=== PATIENT | female | born 1960 | race Caucasian/White ===

== ENCOUNTER 2017-11-03 12:33 | Emergency (ER) | payer MEDICAID ==
[~2017-11-03] VITALS: Ht 165.1 cm; Wt 70.7 kg
[2017-11-03 12:39] VITALS: BP 133/88
[2017-11-03] MEDS ORDERED: SODIUM CHLORIDE 0.9% 1,000 ML IV ONE (12:46)
[2017-11-03] MEDS ORDERED: SODIUM CHLORIDE 0.9% 1,000ML IVBOLUS ONE (13:00)
[2017-11-03] MEDS ORDERED: FAMOTIDINE 20 MG/2 ML IVP ONE (13:00)
[2017-11-03] MEDS ORDERED: ONDANSETRON ODT 4 MG PO ONE (13:00)
[2017-11-03 13:11] LABS: BASOPHILS # (AUTO) 0.01 x10^3/uL (0-0.1); BASOPHILS % (AUTO) 0 % (0-1); EOSINOPHILS # (AUTO) 0.06 x10^3/uL (0-0.4); EOSINOPHILS % (AUTO) 1 % (1-7); LYMPHOCYTES # (AUTO) 1.54 x10^3/uL (1-3.4); LYMPHOCYTES % (AUTO) 21 % (22-44); MD NO; MEAN CORPUSCULAR HEMOGLOBIN 32.5 pg (27.0-34.8); MEAN CORPUSCULAR HGB CONC 33.9 g/dL (32.4-35.8); MEAN CORPUSCULAR VOLUME 95.9 fL (80-100); MEAN PLATELET VOLUME 8.4 fL (7.4-10.4); MONOCYTES # (AUTO) 0.52 x10^3/uL (0.2-0.8); MONOCYTES % (AUTO) 7 % (2-9); NEUTROPHILS % (AUTO) 71 % (42-75); PLATELET COUNT 242 x10^3/uL (130-400); RED BLOOD COUNT 5.55 x10^6/uL (3.82-5.3); RED CELL DISTRIBUTION WIDTH 16.7 % (9.6-15.2)
[2017-11-03 13:19] LABS: ALANINE AMINOTRANSFERASE 53 U/L (12-78); ALBUMIN 3.9 g/dL (3.4-5.0); ANION GAP 11 mmol/L (5-15); CALCIUM 8.7 mg/dL (8.5-10.1); CHLORIDE 101 mmol/L (98-107); SALICYLATE LEVEL 6.1 mg/dL (2.8-20.0)
[2017-11-03 13:22] LABS: ALKALINE PHOSPHATASE 97 U/L (45-117); BILIRUBIN,TOTAL 0.6 mg/dL (0.2-1.0); TOTAL PROTEIN 7.1 g/dL (6.4-8.2)
[2017-11-03 13:23] LABS: ACETAMINOPHEN < 2 mcg/mL (10-30)
[2017-11-03] MEDS ORDERED: ONDANSETRON 2MG/ML, 2ML ONE (14:07)
[2017-11-03] MEDS ORDERED: FAMOTIDINE 20 MG/2 ML ONE (14:08)
[2017-11-03 16:12] LABS: CULTURE INDICATED? YES; MICROSCOPIC INDICATED
[2017-11-03 16:24] LABS: AMPHETAMINE SCREEN, URINE Negative (Negative); BARBITURATE SCREEN, URINE Negative (Negative); CANNABINOID SCREEN, URINE Negative (Negative); COCAINE SCREEN, URINE Negative (Negative); METHADONE SCREEN, URINE Negative (Negative); OPIATE SCREEN, URINE Negative (Negative)
[2017-11-03 16:29] LABS: BENZODIAZEPINE SCREEN, URINE Negative (Negative)
== END 2017-11-03 17:03 | disposition home or self-care (01) ==
LOC: ED 16:40
DX: F10.220 Alcohol dependence with intoxication, uncomplicated (principal); F41.1 Generalized anxiety disorder
CPT/HCPCS: 36415; 80053; 80307; 80329; 81001; 83690; 85025; 87086; 96361; 96374; 99285; J7030; Q0162; G0480; S0028

== ENCOUNTER 2020-06-13 04:51 | Emergency (ER) | payer SELFPAY ==
[~2020-06-13] VITALS: Ht 167.6 cm; Wt 83.1 kg
[2020-06-13 04:55] VITALS: BP 160/77
== END 2020-06-13 06:02 | disposition home or self-care (01) ==
LOC: ED 05:51
DX: K08.89 Other specified disorders of teeth and supporting structures (principal); R22.0 Localized swelling, mass and lump, head
CPT/HCPCS: 99283

== ENCOUNTER 2021-02-06 13:45 | Emergency (ER) | payer OTHER ==
[~2021-02-06] VITALS: Ht 165.1 cm; Wt 81.0 kg
[2021-02-06 15:10] LABS: BASOPHILS % (AUTO) 1 % (0-1); EOSINOPHILS % (AUTO) 2 % (1-7); LYMPHOCYTES % (AUTO) 36 % (22-44); MEAN CORPUSCULAR HEMOGLOBIN 30.3 pg (27.0-34.8); MEAN CORPUSCULAR HGB CONC 33.1 g/dL (32.4-35.8); MEAN PLATELET VOLUME 8.2 fL (7.4-10.4); MONOCYTES % (AUTO) 7 % (2-9); NEUTROPHILS % (AUTO) 55 % (42-75); PLATELET COUNT 306 x10^3/uL (130-400); RED BLOOD COUNT 5.27 x10^6/uL (3.82-5.3); RED CELL DISTRIBUTION WIDTH 15.2 % (9.6-15.2)
[2021-02-06 15:19] LABS: ALANINE AMINOTRANSFERASE 37 U/L (12-78); ALBUMIN 3.7 g/dL (3.4-5.0); ANION GAP 5 mmol/L (5-15); CALCIUM 8.9 mg/dL (8.5-10.1); CHLORIDE 107 mmol/L (98-107); CREATININE 0.59 mg/dL (0.55-1.02)
[2021-02-06 15:21] LABS: ALKALINE PHOSPHATASE 81 U/L (45-117); BILIRUBIN,TOTAL 0.3 mg/dL (0.2-1.0); TOTAL PROTEIN 7.5 g/dL (6.4-8.2)
--- NOTE | 2021-02-06 16:27 | NUR ---
PATIENT AMBULATORY WITHOUT DIFFICULT. DR. OKEEFE AT [facility]. STATES LOW FLANK PAIN BILATERALLY. STATES SHE DID ATTEMPT ABX THAT SHE HAD AT HOME WITHOUT RELIEF. STATES 'FEELS BETTER WHEN IM MOVING' NO APPARENT CVT TENDERNESS.
[2021-02-06] MEDS ORDERED: MELA1TAB19 SL (16:34)
[2021-02-06] MEDS ORDERED: VALE100C PO (16:34)
[2021-02-06 16:37] LABS: MICROSCOPIC NOT IND
[2021-02-06 16:39] VITALS: BP 154/94
[2021-02-06] MEDS ORDERED: OXYcodone/APAP 5/325MG TABLET ONE (17:40)
--- NOTE | 2021-02-06 17:47 | NUR ---
Patient/Caregiver given discharge instructions and they have confirmed that they understand the instructions. Patient ambulatory with steady gait.
[2021-02-06] MEDS ORDERED: OXYcodone/APAP 5/325MG TABLET PO ONE (18:00)
== END 2021-02-06 17:49 | disposition home or self-care (01) ==
LOC: ED 13:50
DX: S39.012A Strain of muscle, fascia and tendon of lower back, initial encounter (principal); M51.36 Other intervertebral disc degeneration, lumbar region; X58.XXXA Exposure to other specified factors, initial encounter; Y93.89 Activity, other specified; Y92.89 Other specified places as the place of occurrence of the external cause; Y99.8 Other external cause status; F17.210 Nicotine dependence, cigarettes, uncomplicated
CPT/HCPCS: 36415; 72110; 80053; 81003; 83690; 85025; 99284; J7512

== ENCOUNTER 2021-02-14 12:03 | Emergency (ER) | payer SELFPAY ==
[~2021-02-14] VITALS: Ht 165.1 cm; Wt 79.7 kg
[2021-02-14 12:06] VITALS: BP 123/82
== END 2021-02-14 13:34 | disposition home or self-care (01) ==
LOC: ED 13:00
DX: M54.42 Lumbago with sciatica, left side (principal); M46.1 Sacroiliitis, not elsewhere classified
CPT/HCPCS: 96372; 99283; J1885